=== PATIENT | female | born 1960 | race American Indian/Alaskan Native ===

== ENCOUNTER 2019-05-12 08:52 | Emergency (ER) | payer MEDICARE, OTHER ==
[2019-05-12 09:18] VITALS: BP 158/84
[2019-05-12] MEDS ORDERED: MORPHINE 4 MG/1 ML INJ IV ONE (10:12)
[2019-05-12] MEDS ORDERED: dexAMETHasone 20 MG/5 ML VIAL IV ONE (10:12)
[2019-05-12] MEDS ORDERED: ONDANSETRON 4 MG/2 ML INJ IV ONE (10:12)
[2019-05-12] MEDS ORDERED: SODIUM CHLORIDE 0.9% 1000 ML 1,000 ML IV ONE (10:15)
--- NOTE | 2019-05-12 10:15 | Emergency Department Report ---
ED ENT HPI - General Chief complaint: Dental/Oral Stated complaint: TOOTHACHE/GUM SWOLLEN Time Seen by Provider: 05/12/19 10:05 Source: patient Mode of arrival: Wheelchair Limitations: No Limitations - History of Present Illness Initial comments: Patient is 58 years old female with history of hypertension, CVA and asthma. Patient presented to the ER complaining of right to swelling extending down to the upper neck. Patient denied any difficulty in breathing or swallowing. MD complaint: tooth pain - Related Data Home Medications Medication Instructions Recorded Confirmed Last Taken Amlodipine Bes/Olmesartan Med 10 mg PO DAILY 06/03/14 06/03/14 06/03/14 [Travis 10-20 mg] Atenolol 100 mg PO DAILY 06/03/14 06/03/14 06/03/14 Clopidogrel [Plavix] 75 mg PO DAILY 06/03/14 06/03/14 06/03/14 Enalapril Maleate [Vasotec] 10 mg PO DAILY 06/03/14 06/03/14 06/03/14 Previous Rx's Medication Instructions Recorded Last Taken Type Pantoprazole [Protonix TAB] 40 mg PO QDAY #30 tablet 06/06/14 Unknown Rx oxyCODONE /ACETAMINOPHEN [Percocet 1 tab PO Q4H PRN #20 tablet 06/06/14 Unknown Rx 5/325 mg] Ondansetron [Zofran] 4 mg PO Q6HR PRN #4 tablet 07/12/14 Unknown Rx Oxycodone HCl/Acetaminophen 1 each PO Q6HR PRN #20 tablet 07/12/14 Unknown Rx [Percocet 10-325 mg] Sulfamethoxazole/Trimethoprim 1 each PO BID 7 Days #14 tablet 03/30/19 Unknown Rx [Bactrim DS TAB] cephALEXin [Keflex] 500 mg PO QID 7 Days #28 capsule 03/30/19 Unknown Rx oxyCODONE /ACETAMINOPHEN [Percocet 1 tab PO Q6HR PRN #10 tablet 03/30/19 Unknown Rx 5/325] Allergies Allergy/AdvReac Type Severity Reaction Status Date / Time aspirin Allergy Vomiting Verified 06/03/14 15:22 metoclopramide HCl Allergy Hives Verified 06/03/14 23:01 [From [facility]] ED Dental HPI - General Chief complaint: Dental/Oral Stated complaint: TOOTHACHE/GUM SWOLLEN Time Seen by Provider: 05/12/19 10:05 Source: patient Mode of arrival: Wheelchair Limitations: No Limitations - Related Data Home Medications Medication Instructions Recorded Confirmed Last Taken Amlodipine Bes/Olmesartan Med 10 mg PO DAILY 06/03/14 06/03/14 06/03/14 [Travis 10-20 mg] Atenolol 100 mg PO DAILY 06/03/14 06/03/14 06/03/14 Clopidogrel [Plavix] 75 mg PO DAILY 06/03/14 06/03/14 06/03/14 Enalapril Maleate [Vasotec] 10 mg PO DAILY 06/03/14 06/03/14 06/03/14 Previous Rx's Medication Instructions Recorded Last Taken Type Pantoprazole [Protonix TAB] 40 mg PO QDAY #30 tablet 06/06/14 Unknown Rx oxyCODONE /ACETAMINOPHEN [Percocet 1 tab PO Q4H PRN #20 tablet 06/06/14 Unknown Rx 5/325 mg] Ondansetron [Zofran] 4 mg PO Q6HR PRN #4 tablet 07/12/14 Unknown Rx Oxycodone HCl/Acetaminophen 1 each PO Q6HR PRN #20 tablet 07/12/14 Unknown Rx [Percocet 10-325 mg] Sulfamethoxazole/Trimethoprim 1 each PO BID 7 Days #14 tablet 03/30/19 Unknown Rx [Bactrim DS TAB] cephALEXin [Keflex] 500 mg PO QID 7 Days #28 capsule 03/30/19 Unknown Rx oxyCODONE /ACETAMINOPHEN [Percocet 1 tab PO Q6HR PRN #10 tablet 03/30/19 Unknown Rx 5/325] Allergies Allergy/AdvReac Type Severity Reaction Status Date / Time aspirin Allergy Vomiting Verified 06/03/14 15:22 metoclopramide HCl Allergy Hives Verified 06/03/14 23:01 [From [facility]] ED Review of Systems ROS: Stated complaint: TOOTHACHE/GUM SWOLLEN Other details as noted in HPI Comment: All other systems reviewed and negative Constitutional: chills, fever Respiratory: denies: cough Cardiovascular: denies: chest pain, palpitations Gastrointestinal: denies: abdominal pain, nausea, vomiting Neurological: denies: headache, weakness ED Past Medical Hx - Past Medical History Previous Medical History?: Yes Hx Hypertension: Yes (controlled with meds) Hx CVA: Yes Hx Psychiatric Treatment: Yes (depression, insomnia) Hx Asthma: Yes (uses inhalers. last used 4 days ago. no recent asthma attacks) Additional medical history: anemia (19-20 blood transfusions per patient). ulcer - Surgical History Past Surgical History?: Yes Additional Surgical History: hysterectomy. gastric bypass. bilateral knee surgery. bilateral shoulder surgery - Social History Smoking Status: Never Smoker Substance Use Type: None - Medications Home Medications: Home Medications Medication Instructions Recorded Confirmed Last Taken Type Amlodipine Bes/Olmesartan Med 10 mg PO DAILY 06/03/14 06/03/14 06/03/14 History [Travis 10-20 mg] Atenolol 100 mg PO DAILY 06/03/14 06/03/14 06/03/14 History Clopidogrel [Plavix] 75 mg PO DAILY 06/03/14 06/03/14 06/03/14 History Enalapril Maleate [Vasotec] 10 mg PO DAILY 06/03/14 06/03/14 06/03/14 History Pantoprazole [Protonix TAB] 40 mg PO QDAY #30 tablet 06/06/14 Unknown Rx oxyCODONE /ACETAMINOPHEN [Percocet 1 tab PO Q4H PRN #20 tablet 06/06/14 Unknown Rx 5/325 mg] Ondansetron [Zofran] 4 mg PO Q6HR PRN #4 tablet 07/12/14 Unknown Rx Oxycodone HCl/Acetaminophen 1 each PO Q6HR PRN #20 tablet 07/12/14 Unknown Rx [Percocet 10-325 mg] Sulfamethoxazole/Trimethoprim 1 each PO BID 7 Days #14 tablet 03/30/19 Unknown Rx [Bactrim DS TAB] cephALEXin [Keflex] 500 mg PO QID 7 Days #28 capsule 03/30/19 Unknown Rx oxyCODONE /ACETAMINOPHEN [Percocet 1 tab PO Q6HR PRN #10 tablet 03/30/19 Unknown Rx 5/325] ED Physical Exam - General Limitations: No Limitations General appearance: alert, in no apparent distress - Head Head exam: Present: atraumatic, normocephalic, normal inspection - Eye Eye exam: Present: normal appearance, PERRL - ENT ENT exam: Present: normal orophraynx, mucous membranes moist, other (dental abscess) - Respiratory Respiratory exam: Present: normal lung sounds bilaterally - Cardiovascular Cardiovascular Exam: Present: tachycardia - GI/Abdominal GI/Abdominal exam: Present: soft, normal bowel sounds. Absent: distended, tenderness, guarding, rebound, rigid, organomegaly, mass, bruit, pulsatile mass, hernia - Extremities Exam Extremities exam: Present: normal inspection, full ROM - Neurological Exam Neurological exam: Present: alert, oriented X3 - Psychiatric Psychiatric exam: Present: normal mood ED Course Vital Signs 05/12/19 05/12/19 05/12/19 09:15 10:40 10:49 Temperature 99.9 F H Pulse Rate 111 H Respiratory 16 17 16 Rate Blood Pressure 158/84 O2 Sat by Pulse 98 Oximetry ED Medical Decision Making - Lab Data Result diagrams: 05/12/19 10:40 05/12/19 10:40 - Radiology Data Radiology results: report reviewed - Medical Decision Making Patient is 58 years old female with history of hypertension, CVA and asthma. Patient presented to the ER complaining of right to swelling extending down to the upper neck. Patient denied any difficulty in breathing or swallowing. Patient labs reviewed and is unremarkable. CT neck with IV contrast showed a sm all periodontal abscess with reactive cellulitis. She received clindamycin, Decadron, morphine and Zofran. Patient stated that she is feeling much better. Patient strongly advised to follow-up with her dentist in the next 2-3 days and her primary care physician and advised to return to the ER if symptoms are not improved. Critical care attestation.: If time is entered above; I have spent that time in minutes in the direct care of this critically ill patient, excluding procedure time. ED Disposition Clinical Impression: Neck swelling, Periodontal abscess Disposition: - TO HOME OR SELFCARE Is pt being admited?: No Condition: Stable Instructions: Dental Abscess (ED), Cellulitis (ED) Referrals: ABHILASH SOFIA V [Other] - 3-5 Days
[2019-05-12 10:54] LABS: Basophils % (Auto) 0.2 % (0.0-1.8); Eosinophils # (Auto) 0.1 K/mm3 (0.0-0.4); Eosinophils % (Auto) 0.8 % (0.0-4.3); Hematocrit 35.7 % (30.3-42.9); Hemoglobin 11.7 gm/dl (10.1-14.3); Lymphocytes # (Auto) 0.9 K/mm3 (1.2-5.4); Mean Corpuscular HGB Conc 33 % (30-34); Mean Corpuscular Volume 92 fl (79-97); Monocytes # (Auto) 0.7 K/mm3 (0.0-0.8); Monocytes % (Auto) 6.6 % (0.0-7.3); Platelet Count 309 K/mm3 (140-440); Red Blood Count 3.86 M/mm3 (3.65-5.03)
[2019-05-12 11:15] LABS: BUN/Creatinine Ratio 11; Blood Urea Nitrogen 9 mg/dL (7-17); Calcium 9.6 mg/dL (8.4-10.2); Hemolysis Index 3
--- NOTE | 2019-05-12 14:32 | Cat Scan Report ---
CT neck w con INDICATION / CLINICAL INFORMATION: 58 years Female; neck swelling. TECHNIQUE: Contiguous thin cut axial images obtained through the neck following IV contrast. Sagittal and lawler l reconstructions performed by the technologist. All CT scans at this location are performed using CT dose reduction for ALARA by means of automated exposure control. COMPARISON: None available FINDINGS: There is a very small fluid collection with rim enhancement near the angle of the mandible on the right. I believe this finding is a small abscess related to periodontal disease from the wisdo m tooth on the right. Significant, surrounding cellulitic/inflammatory change noted. Presumed reactiv e lymph nodes identified. No suppurative nodes seen. Overall, poor dentition is noted as well. MUCOSAL SPACE: The nasopharynx, oropharynx and vallecula, oral cavity and floor of mouth, hypopharynx , and larynx are grossly normal. LYMPH NODES: No significant adenopathy appreciated. SALIVARY GLANDS: Parotid, submandibular, and visualized sublingual glands are within normal limits. T here is significant edema surrounding the right submandibular gland, which is presumably reactive. THYROID GLAND: Unremarkable. PARANASAL SINUSES: There is mild mucosal thickening in the ethmoids. SPINE: No significant abnormality of the cervical spine appreciated. VASCULAR STRUCTURES: Vascular structures are grossly normal in appearance. There is a small lipoma deep to the trapezius muscle on the right-of no clinical significance. Patchy airspace disease seen in the right lung apex. Some component of debris and/or fluid is seen layering in the mildly dilated esophagus. IMPRESSION: 1. Very small periapical/periodontal abscess suggested along the mandible on the right, with associat ed, reactive cellulitic process. 2. Minimal airspace disease suggested in the right lung apex, anteriorly. Follow-up with chest x-ray as clinically warranted. Signer Name: Morro Patel MD, III Signed: 05/12/2019 2:27 PM Workstation Name: [id number]
== END 2019-05-12 15:49 | disposition home or self-care (01) ==
LOC: ED 08:52
DX: R22.1 Localized swelling, mass and lump, neck (principal); K05.219 Aggressive periodontitis, localized, unspecified severity; I10 Essential (primary) hypertension; F32.9 Major depressive disorder, single episode, unspecified; J45.909 Unspecified asthma, uncomplicated; D64.9 Anemia, unspecified; Z86.73 Personal history of transient ischemic attack (TIA), and cerebral infarction without residual deficits; Z90.710 Acquired absence of both cervix and uterus; Z98.890 Other specified postprocedural states; Z88.6 Allergy status to analgesic agent; Z88.8 Allergy status to other drugs, medicaments and biological substances
CPT/HCPCS: 36415; 70491; 80048; 85025; 96365; 96375; 99284; J1100; J2270; J2405; J7030; Q9967

== ENCOUNTER 2019-05-20 22:38 | Emergency (ER) | payer OTHER ==
[2019-05-21] LABS: Basophils # (Auto) 0.1 K/mm3 (0.0-0.1); Basophils % (Auto) 0.9 % (0.0-1.8); Eosinophils # (Auto) 0.1 K/mm3 (0.0-0.4); Eosinophils % (Auto) 1.8 % (0.0-4.3); Hematocrit 29.4 % (30.3-42.9); Hemoglobin 9.5 gm/dl (10.1-14.3); Lymphocytes # (Auto) 1.5 K/mm3 (1.2-5.4); Lymphocytes % (Auto) 25.9 % (13.4-35.0); Mean Corpuscular HGB Conc 32 % (30-34); Mean Corpuscular Volume 92 fl (79-97); Monocytes # (Auto) 0.4 K/mm3 (0.0-0.8); Monocytes % (Auto) 6.9 % (0.0-7.3); Platelet Count 439 K/mm3 (140-440); Red Blood Count 3.19 M/mm3 (3.65-5.03); Red Cell Distribution Width 16.2 % (13.2-15.2)
[2019-05-21 00:03] LABS: BUN/Creatinine Ratio 17; Blood Urea Nitrogen 15 mg/dL (7-17); Calcium 9.1 mg/dL (8.4-10.2); Hemolysis Index 14
[2019-05-21] MEDS ORDERED: MORPHINE IV ONE (00:09)
[2019-05-21] MEDS ORDERED: ZOFRAN IV ONE (00:09)
--- NOTE | 2019-05-21 00:18 | Emergency Department Report ---
ED Chest Pain HPI - General Chief Complaint: Chest Pain Stated Complaint: CHEST PAIN Time Seen by Provider: 05/21/19 00:08 Source: patient, EMS Mode of arrival: Stretcher Limitations: No Limitations - History of Present Illness Initial Comments: 58 year old -Japanese female with a past medical history of hypertension, CVA, anemia, asthma. Patient has a surgical history of a gastric bypass 2001, hysterectomy, bilateral knee surgery and bilateral shoulder surgery. She comes in complaining of substernal chest pain after drinking chocolate milk with vomiting 1. Patient reports she clutched her chest and her son called her mother and then called EMS sent patient to the emergency room. Patient admits to chills sweating and vomiting times one with shortness of breath. Patient denies any nausea at this time. Patient reports that the location of her chest pain is epigastric area 10 out of 10 that is sharp shooting and intermittent. MD Complaint: chest pain -: This evening Onset: after eating Pain Location: substernal Pain Radiation: none Severity: severe Severity scale (0 -10): 10 Quality: sharp Consistency: intermittent Worsens With: nothing re: vomting (times 1) Treatments Prior to Arrival: none Aspirin use within the Past 7 Days: (0) No - Related Data Home Medications Medication Instructions Recorded Confirmed Last Taken Amlodipine Bes/Olmesartan Med 10 mg PO DAILY 06/03/14 06/03/14 06/03/14 [Travis 10-20 mg] Atenolol 100 mg PO DAILY 06/03/14 06/03/14 06/03/14 Clopidogrel [Plavix] 75 mg PO DAILY 06/03/14 06/03/14 06/03/14 Enalapril Maleate [Vasotec] 10 mg PO DAILY 06/03/14 06/03/14 06/03/14 Previous Rx's Medication Instructions Recorded Last Taken Type Pantoprazole [Protonix TAB] 40 mg PO QDAY #30 tablet 06/06/14 Unknown Rx oxyCODONE /ACETAMINOPHEN [Percocet 1 tab PO Q4H PRN #20 tablet 06/06/14 Unknown Rx 5/325 mg] Ondansetron [Zofran] 4 mg PO Q6HR PRN #4 tablet 07/12/14 Unknown Rx Oxycodone HCl/Acetaminophen 1 each PO Q6HR PRN #20 tablet 07/12/14 Unknown Rx [Percocet 10-325 mg] Sulfamethoxazole/Trimethoprim 1 each PO BID 7 Days #14 tablet 03/30/19 Unknown Rx [Bactrim DS TAB] cephALEXin [Keflex] 500 mg PO QID 7 Days #28 capsule 03/30/19 Unknown Rx oxyCODONE /ACETAMINOPHEN [Percocet 1 tab PO Q6HR PRN #10 tablet 03/30/19 Unknown Rx 5/325] Clindamycin [Clindamycin CAP] 300 mg PO Q8H #30 cap 05/12/19 Unknown Rx Ondansetron [Zofran Odt] 4 mg PO Q8HR PRN #14 tab.rapdis 05/12/19 Unknown Rx Prednisone [predniSONE 10 mg 10 mg PO .TAPER #1 tab.ds.pk 05/12/19 Unknown Rx (6-Day Pack, 21 Tabs)] traMADol [Ultram] 50 mg PO Q6HR PRN #14 tablet 05/12/19 Unknown Rx Allergies Allergy/AdvReac Type Severity Reaction Status Date / Time aspirin Allergy Vomiting Verified 06/03/14 15:22 metoclopramide HCl Allergy Hives Verified 06/03/14 23:01 [From [facility]] Heart Score - HEART Score History: Slightly suspicious EKG: Non-specific Age: 45-65 Risk factors: 1-2 risk factors Troponin: < normal limit HEART Score: 3 ED Review of Systems ROS: Stated complaint: CHEST PAIN Other details as noted in HPI Comment: All other systems reviewed and negative Cardiovascular: chest pain Gastrointestinal: vomiting (times 1). denies: nausea ED Past Medical Hx - Past Medical History Hx Hypertension: Yes (controlled with meds) Hx CVA: Yes Hx Psychiatric Treatment: Yes (depression, insomnia) Hx Asthma: Yes (uses inhalers. last used 4 days ago. no recent asthma attacks) Additional medical history: anemia (19-20 blood transfusions per patient). ulcer - Surgical History Past Surgical History?: Yes Additional Surgical History: hysterectomy. gastric bypass. bilateral knee surgery. bilateral shoulder surgery - Social History Smoking Status: Never Smoker Substance Use Type: None - Medications Home Medications: Home Medications Medication Instructions Recorded Confirmed Last Taken Type Amlodipine Bes/Olmesartan Med 10 mg PO DAILY 06/03/14 06/03/14 06/03/14 History [Travis 10-20 mg] Atenolol 100 mg PO DAILY 06/03/14 06/03/14 06/03/14 History Clopidogrel [Plavix] 75 mg PO DAILY 06/03/14 06/03/14 06/03/14 History Enalapril Maleate [Vasotec] 10 mg PO DAILY 06/03/14 06/03/14 06/03/14 History Pantoprazole [Protonix TAB] 40 mg PO QDAY #30 tablet 06/06/14 Unknown Rx oxyCODONE /ACETAMINOPHEN [Percocet 1 tab PO Q4H PRN #20 tablet 06/06/14 Unknown Rx 5/325 mg] Ondansetron [Zofran] 4 mg PO Q6HR PRN #4 tablet 07/12/14 Unknown Rx Oxycodone HCl/Acetaminophen 1 each PO Q6HR PRN #20 tablet 07/12/14 Unknown Rx [Percocet 10-325 mg] Sulfamethoxazole/Trimethoprim 1 each PO BID 7 Days #14 tablet 03/30/19 Unknown Rx [Bactrim DS TAB] cephALEXin [Keflex] 500 mg PO QID 7 Days #28 capsule 03/30/19 Unknown Rx oxyCODONE /ACETAMINOPHEN [Percocet 1 tab PO Q6HR PRN #10 tablet 03/30/19 Unknown Rx 5/325] Clindamycin [Clindamycin CAP] 300 mg PO Q8H #30 cap 05/12/19 Unknown Rx Ondansetron [Zofran Odt] 4 mg PO Q8HR PRN #14 tab.rapdis 05/12/19 Unknown Rx Prednisone [predniSONE 10 mg 10 mg PO .TAPER #1 tab.ds.pk 05/12/19 Unknown Rx (6-Day Pack, 21 Tabs)] traMADol [Ultram] 50 mg PO Q6HR PRN #14 tablet 05/12/19 Unknown Rx ED Physical Exam - General Limitations: No Limitations General appearance: alert, in no apparent distress - Head Head exam: Present: atraumatic, normocephalic - Eye Eye exam: Present: normal appearance - ENT ENT exam: Present: mucous membranes moist - Neck Neck exam: Present: normal inspection - Respiratory Respiratory exam: Present: normal lung sounds bilaterally. Absent: respiratory distress - Cardiovascular Cardiovascular Exam: Present: regular rate, normal rhythm. Absent: systolic murmur, diastolic murmur, rubs, gallop - GI/Abdominal GI/Abdominal exam: Present: soft, tenderness (epigastric), normal bowel sounds. Absent: distended - Back Exam Back exam: Present: normal inspection - Neurological Exam Neurological exam: Present: alert, oriented X3 - Psychiatric Psychiatric exam: Present: normal affect, normal mood - Skin Skin exam: Present: warm, dry, intact, normal color. Absent: rash ED Course Vital Signs 05/20/19 05/20/19 05/20/19 23:03 23:06 23:15 Temperature 97.6 F Pulse Rate 83 81 78 Respiratory 12 18 16 Rate Blood Pressure 157/75 141/83 O2 Sat by Pulse 100 100 Oximetry 05/20/19 05/20/19 05/21/19 23:30 23:45 00:00 Temperature Pulse Rate 80 Respiratory 15 Rate Blood Pressure 148/84 140/96 156/100 O2 Sat by Pulse 100 100 Oximetry 05/21/19 05/21/19 05/21/19 00:30 00:45 01:00 Temperature Pulse Rate Respiratory Rate Blood Pressure 166/96 152/95 134/86 O2 Sat by Pulse 90 100 96 Oximetry 05/21/19 05/21/19 05/21/19 01:15 01:30 01:45 Temperature Pulse Rate 71 67 Respiratory 14 14 Rate Blood Pressure 129/79 138/87 138/83 O2 Sat by Pulse 100 100 100 Oximetry 05/21/19 05/21/19 05/21/19 02:00 02:15 02:30 Temperature Pulse Rate 68 66 62 Respiratory 14 14 13 Rate Blood Pressure 132/82 148/88 157/91 O2 Sat by Pulse 100 100 100 Oximetry 05/21/19 05/21/19 05/21/19 02:45 03:00 03:15 Temperature Pulse Rate 63 65 63 Respiratory 15 14 14 Rate Blood Pressure 157/91 165/104 146/92 O2 Sat by Pulse 100 100 Oximetry 05/21/19 05/21/19 05/21/19 03:30 03:45 04:00 Temperature Pulse Rate 61 63 69 Respiratory 15 15 14 Rate Blood Pressure 136/88 130/85 118/67 O2 Sat by Pulse 100 100 100 Oximetry 05/21/19 05/21/19 05/21/19 04:15 04:30 04:45 Temperature Pulse Rate 66 65 65 Respiratory 14 14 15 Rate Blood Pressure 118/67 133/82 133/82 O2 Sat by Pulse 100 100 100 Oximetry 05/21/19 05:05 Temperature 97.6 F Pulse Rate 65 Respiratory 15 Rate Blood Pressure O2 Sat by Pulse 100 Oximetry NATHANAEL score - Nathanael Score Age > 65: (0) No Aspirin use within the Past 7 Days: (0) No 3 or more CAD Risk Factors: (0) No 2 or more Angina events in past 24 hrs: (0) No Known CAD with more than 50% Stenosis: (0) No Elevated Cardiac Markers: (0) No ST Deviation Greater than 0.5mm: (0) No NATHANAEL Score: 0 ED Medical Decision Making - Lab Data Result diagrams: 05/20/19 23:16 05/20/19 23:16 - Medical Decision Making 58 year old -Japanese female with a past medical history of hypertension, CVA, anemia, asthma. Patient has a surgical history of a gastric bypass 2001, hysterectomy, bilateral knee surgery and bilateral shoulder surgery. She comes in complaining of substernal chest pain after drinking chocolate milk with vomiting 1. Patient reports she clutched her chest and her son called her mother and then called EMS sent patient to the emergency room. Patient admits to chills sweating and vomiting times one with shortness of breath. Patient denies any nausea at this time. Patient reports that the location of her chest pain is epigastric area 10 out of 10 that is sharp shooting and intermittent. Family history of HTN. EKG with in normal limits, Neg troponin. CXR with no acute findings. Review of [place] [employer] aware patient has filled T3 on 05/13/19 and [place] 7.5mg 120 tablets on 05/05/19 Dr. Abhilash Cornejo. Critical care attestation.: If time is entered above; I have spent that time in minutes in the direct care of this critically ill patient, excluding procedure time. ED Disposition Clinical Impression: Atypical chest pain Disposition: DC-01 TO HOME OR SELFCARE Is pt being admited?: No Does the pt Need Aspirin: No Condition: Stable Instructions: Chest Pain (ED) Additional Instructions: Follow-up which her primary care provider next 2-3 days. Referrals: PRIMARY CARE, [Primary Care Provider] - 3-5 Days ABHILASH SOFIA JR, MD [Staff Physician] - 3-5 Days Forms: Work/School Release Form(ED)
--- NOTE | 2019-05-21 00:36 | XRay Report ---
CHEST 1 VIEW INDICATION / CLINICAL INFORMATION: Chest Pain. COMPARISON: None available. FINDINGS: SUPPORT DEVICES: None. HEART / MEDIASTINUM: No significant abnormality. LUNGS / PLEURA: No significant pulmonary or pleural abnormality. No pneumothorax. ADDITIONAL FINDINGS: No significant additional findings. IMPRESSION: 1. No acute findings. Signer Name: Will Barrera MD Signed: 05/21/2019 12:31 AM Workstation Name: [id number]
[2019-05-21 00:53] LABS: Alanine Aminotransferase 22 units/L (7-56)
[2019-05-21 00:54] LABS: Bilirubin,Direct < 0.2 mg/dL (0-0.2)
[2019-05-21 04:59] VITALS: BP 133/82
== END 2019-05-21 05:05 | disposition home or self-care (01) ==
LOC: ED 22:38
DX: R07.89 Other chest pain (principal); I10 Essential (primary) hypertension; F32.9 Major depressive disorder, single episode, unspecified; G47.00 Insomnia, unspecified; D64.9 Anemia, unspecified; Z86.73 Personal history of transient ischemic attack (TIA), and cerebral infarction without residual deficits; Z90.710 Acquired absence of both cervix and uterus; Z98.890 Other specified postprocedural states; Z88.6 Allergy status to analgesic agent; Z88.8 Allergy status to other drugs, medicaments and biological substances
CPT/HCPCS: 36415; 71045; 80048; 80076; 83690; 84484; 85025; 93005; 93010; 96374; 96375; 99285; J2270; J2405

== ENCOUNTER 2019-06-06 15:20 | Observation (INO) | payer MEDICARE ==
--- NOTE | 2019-06-06 15:41 | Event Note ---
ED Screening Note Date of service: 06/06/19 Time: 15:37 ED Screening Note: This is a 58 y.o. F. that presents to the ER with chest pain radiating to left arm x 3-4 days. Patient states she was discharged 2 days ago and seen by [facility] and told she would have a stress test on Sunday. Patient states she received a call telling her to go straight to [facility] for admission. This initial assessment/diagnostic orders/clinical plan/treatment(s) is/are subject to change based on patients health status, clinical progression and re- assessment by fellow clinical providers in the ED. Further treatment and workup at subsequent clinical providers discretion. Patient/guardian urged not to elope from the ED as their condition may be serious if not clinically assessed and managed. Initial orders include: Labs, EKG, & CXR
[2019-06-06 16:13] LABS: Basophils % (Auto) 0.6 % (0.0-1.8); Eosinophils # (Auto) 0.1 K/mm3 (0.0-0.4); Eosinophils % (Auto) 1.5 % (0.0-4.3); Hematocrit 29.5 % (30.3-42.9); Hemoglobin 9.4 gm/dl (10.1-14.3); Lymphocytes # (Auto) 1.7 K/mm3 (1.2-5.4); Mean Corpuscular HGB Conc 32 % (30-34); Mean Corpuscular Volume 94 fl (79-97); Monocytes # (Auto) 0.3 K/mm3 (0.0-0.8); Monocytes % (Auto) 7.8 % (0.0-7.3); Platelet Count 246 K/mm3 (140-440); Red Blood Count 3.14 M/mm3 (3.65-5.03); Red Cell Distribution Width 16.5 % (13.2-15.2)
--- NOTE | 2019-06-06 16:23 | XRay Report ---
CHEST 1 VIEW 4:03 PM INDICATION / CLINICAL INFORMATION: Chest pain. COMPARISON: 05/20/2019. FINDINGS: SUPPORT DEVICES: None. HEART / MEDIASTINUM: The heart size and pulmonary vasculature are normal. The aorta is normal in melva leyla. LUNGS / PLEURA: Minimal pleuroparenchymal scarring in the left lateral lung base is stable. The lungs are otherwise clear. No pneumothorax. ADDITIONAL FINDINGS: No significant additional findings. IMPRESSION: No acute abnormality or significant change. Signer Name: Sadi Lao MD Signed: 06/06/2019 4:19 PM Workstation Name: [id number]
[2019-06-06 16:37] LABS: BUN/Creatinine Ratio 17; Blood Urea Nitrogen 12 mg/dL (7-17); Calcium 8.6 mg/dL (8.4-10.2); Hemolysis Index 8
--- NOTE | 2019-06-06 17:24 | Emergency Department Report ---
ED Chest Pain HPI - General Chief Complaint: Chest Pain Stated Complaint: DOC ORDERED/HEART PROBLEMS Time Seen by Provider: 06/06/19 15:37 Source: patient Mode of arrival: Ambulatory Limitations: No Limitations - History of Present Illness Initial Comments: 8-year-old female who was seen at the end of April for atypical chest pain. She was sent here today for evaluation and recommended admission by Dr. Torres from his office. She tells me she has been having tightness in her left chest radiating to her left arm for the last 4 days. She does admit to multiple pain complaints. I believe she is taking chronic opioids. [facility]. She thinks her grandmother may have had a heart attack and her mother has a pacemaker. She tells me that she had DVT in her arm and calf. She has previously been on Coumadin. She does not complain of any berto shortness of breath although she describes some slight dyspnea. She denies nausea vomiting dizziness and sweating leg pain or swelling. She has chronic joint pain of her upper or lower extremities she states. MD Complaint: chest pain -: Gradual, days(s) (4 days) Onset: during rest Pain Location: left chest Pain Radiation: LUE Severity: moderate Quality: tightness Consistency: constant Improves With: nothing Worsens With: nothing re: dyspnea (vaguely). denies: nausea, vomting, diaphoresis Other Symptoms: denies: cough, fever, syncope Treatments Prior to Arrival: none Aspirin use within the Past 7 Days: (0) No - Related Data Home Medications Medication Instructions Recorded Confirmed Last Taken Amlodipine Bes/Olmesartan Med 10 mg PO DAILY 06/03/14 06/03/14 06/03/14 [Travis 10-20 mg] Atenolol 100 mg PO DAILY 06/03/14 06/03/14 06/03/14 Clopidogrel [Plavix] 75 mg PO DAILY 06/03/14 06/03/14 06/03/14 Enalapril Maleate [Vasotec] 10 mg PO DAILY 06/03/14 06/03/14 06/03/14 Previous Rx's Medication Instructions Recorded Last Taken Type Pantoprazole [Protonix TAB] 40 mg PO QDAY #30 tablet 06/06/14 Unknown Rx oxyCODONE /ACETAMINOPHEN [Percocet 1 tab PO Q4H PRN #20 tablet 06/06/14 Unknown Rx 5/325 mg] Ondansetron [Zofran] 4 mg PO Q6HR PRN #4 tablet 07/12/14 Unknown Rx Oxycodone HCl/Acetaminophen 1 each PO Q6HR PRN #20 tablet 07/12/14 Unknown Rx [Percocet 10-325 mg] Sulfamethoxazole/Trimethoprim 1 each PO BID 7 Days #14 tablet 03/30/19 Unknown Rx [Bactrim DS TAB] cephALEXin [Keflex] 500 mg PO QID 7 Days #28 capsule 03/30/19 Unknown Rx oxyCODONE /ACETAMINOPHEN [Percocet 1 tab PO Q6HR PRN #10 tablet 03/30/19 Unknown Rx 5/325] Clindamycin [Clindamycin CAP] 300 mg PO Q8H #30 cap 05/12/19 Unknown Rx Ondansetron [Zofran Odt] 4 mg PO Q8HR PRN #14 tab.rapdis 05/12/19 Unknown Rx Prednisone [predniSONE 10 mg 10 mg PO .TAPER #1 tab.ds.pk 05/12/19 Unknown Rx (6-Day Pack, 21 Tabs)] traMADol [Ultram] 50 mg PO Q6HR PRN #14 tablet 05/12/19 Unknown Rx Allergies Allergy/AdvReac Type Severity Reaction Status Date / Time aspirin Allergy Vomiting Verified 06/03/14 15:22 metoclopramide HCl Allergy Hives Verified 06/03/14 23:01 [From [facility]] Heart Score - HEART Score History: Moderately suspicious EKG: Normal Age: 45-65 Risk factors: 1-2 risk factors Troponin: < normal limit HEART Score: 3 - Critical Actions Critical Actions: 0-3 pts:0.9-1.7%risk of adverse cardiac event.Candidate for discharge ED Review of Systems ROS: Stated complaint: DOC ORDERED/HEART PROBLEMS Other details as noted in HPI Constitutional: denies: chills, fever Eyes: denies: eye pain, eye discharge, vision change ENT: denies: ear pain, throat pain Respiratory: denies: cough, wheezing Cardiovascular: chest pain. denies: palpitations Endocrine: no symptoms reported Gastrointestinal: denies: abdominal pain, nausea, diarrhea Genitourinary: denies: urgency, dysuria, discharge Musculoskeletal: denies: back pain, joint swelling, arthralgia Skin: denies: rash, lesions Neurological: denies: headache, weakness, paresthesias Psychiatric: denies: anxiety, depression Hematological/Lymphatic: denies: easy bleeding, easy bruising ED Past Medical Hx - Past Medical History Hx Hypertension: Yes (controlled with meds) Hx CVA: Yes Hx Psychiatric Treatment: Yes (depression, insomnia) Hx Asthma: Yes (uses inhalers. last used 4 days ago. no recent asthma attacks) Additional medical history: anemia (19-20 blood transfusions per patient). ulcer - Surgical History Additional Surgical History: hysterectomy. gastric bypass. bilateral knee surgery. bilateral shoulder surgery - Social History Smoking Status: Never Smoker Substance Use Type: None - Medications Home Medications: Home Medications Medication Instructions Recorded Confirmed Last Taken Type Amlodipine Bes/Olmesartan Med 10 mg PO DAILY 06/03/14 06/03/14 06/03/14 History [Travis 10-20 mg] Atenolol 100 mg PO DAILY 06/03/14 06/03/14 06/03/14 History Clopidogrel [Plavix] 75 mg PO DAILY 06/03/14 06/03/14 06/03/14 History Enalapril Maleate [Vasotec] 10 mg PO DAILY 06/03/14 06/03/14 06/03/14 History Pantoprazole [Protonix TAB] 40 mg PO QDAY #30 tablet 06/06/14 Unknown Rx oxyCODONE /ACETAMINOPHEN [Percocet 1 tab PO Q4H PRN #20 tablet 06/06/14 Unknown Rx 5/325 mg] Ondansetron [Zofran] 4 mg PO Q6HR PRN #4 tablet 07/12/14 Unknown Rx Oxycodone HCl/Acetaminophen 1 each PO Q6HR PRN #20 tablet 07/12/14 Unknown Rx [Percocet 10-325 mg] Sulfamethoxazole/Trimethoprim 1 each PO BID 7 Days #14 tablet 03/30/19 Unknown Rx [Bactrim DS TAB] cephALEXin [Keflex] 500 mg PO QID 7 Days #28 capsule 03/30/19 Unknown Rx oxyCODONE /ACETAMINOPHEN [Percocet 1 tab PO Q6HR PRN #10 tablet 03/30/19 Unknown Rx 5/325] Clindamycin [Clindamycin CAP] 300 mg PO Q8H #30 cap 05/12/19 Unknown Rx Ondansetron [Zofran Odt] 4 mg PO Q8HR PRN #14 tab.rapdis 05/12/19 Unknown Rx Prednisone [predniSONE 10 mg 10 mg PO .TAPER #1 tab.ds.pk 05/12/19 Unknown Rx (6-Day Pack, 21 Tabs)] traMADol [Ultram] 50 mg PO Q6HR PRN #14 tablet 05/12/19 Unknown Rx ED Physical Exam - General Limitations: No Limitations General appearance: alert, in no apparent distress - Head Head exam: Present: atraumatic, normocephalic - Eye Eye exam: Present: normal appearance. Absent: scleral icterus - ENT ENT exam: Present: mucous membranes moist - Neck Neck exam: Present: normal inspection - Respiratory Respiratory exam: Present: normal lung sounds bilaterally. Absent: respiratory distress - Cardiovascular Cardiovascular Exam: Present: regular rate, normal rhythm. Absent: systolic murmur, diastolic murmur, rubs, gallop - GI/Abdominal GI/Abdominal exam: Present: soft, normal bowel sounds. Absent: distended, tenderness, guarding, rebound, rigid - Extremities Exam Extremities exam: Present: normal inspection, normal capillary refill. Absent: pedal edema, joint swelling, calf tenderness - Back Exam Back exam: Present: normal inspection - Neurological Exam Neurological exam: Present: alert, oriented X3, CN II-XII intact. Absent: motor sensory deficit - Psychiatric Psychiatric exam: Present: normal affect, normal mood - Skin Skin exam: Present: warm, dry, intact, normal color. Absent: rash ED Course Vital Signs 06/06/19 15:26 Temperature 97.3 F L Pulse Rate 83 Respiratory 18 Rate Blood Pressure 160/77 O2 Sat by Pulse 100 Oximetry GOGO score - Gogo Score Age > 65: (0) No Aspirin use within the Past 7 Days: (0) No 3 or more CAD Risk Factors: (0) No 2 or more Angina events in past 24 hrs: (0) No Known CAD with more than 50% Stenosis: (0) No Elevated Cardiac Markers: (0) No ST Deviation Greater than 0.5mm: (0) No GOGO Score: 0 ED Medical Decision Making - Lab Data Result diagrams: 06/06/19 15:44 06/06/19 15:44 Laboratory Results - last 24 hr 06/06/19 06/06/19 15:44 15:44 WBC 3.7 L RBC 3.14 L Hgb 9.4 L Hct 29.5 L MCV 94 MCH 30 MCHC 32 RDW 16.5 H Plt Count 246 Lymph % (Auto) 45.0 H [place] % (Auto) 7.8 H Eos % (Auto) 1.5 Baso % (Auto) 0.6 Lymph # 1.7 [place] # 0.3 Eos # 0.1 Baso # 0.0 Seg Neutrophils % 45.1 Seg Neutrophils # 1.7 L Sodium 143 Potassium 4.0 Chloride 112.7 H Carbon Dioxide 17 L Anion Gap 17 BUN 12 Creatinine 0.7 Estimated GFR > 60 BUN/Creatinine Ratio 17 Glucose 114 H Calcium 8.6 Troponin T < 0.010 - EKG Data -: EKG Interpreted by Dc EKG shows normal: sinus rhythm, axis, intervals, QRS complexes, ST-T waves Rate: normal - EKG Data Interpretation: no acute changes - Radiology Data Radiology results: image reviewed (no acute process) Critical care attestation.: If time is entered above; I have spent that time in minutes in the direct care of this critically ill patient, excluding procedure time. ED Disposition Clinical Impression: Chest pain Qualifiers: Chest pain type: unspecified Qualified Code(s): R07.9 - Chest pain, unspecified Anemia Qualifiers: Anemia type: unspecified type Qualified Code(s): D64.9 - Anemia, unspecified Disposition: 09 OP ADMIT IP TO THIS HOSP Is pt being admited?: Yes Does the pt Need Aspirin: Yes Condition: Stable Instructions: Chest Pain (ED) Time of Disposition: 17:27
[2019-06-06] MEDS ORDERED: ASPIRIN 81 MG TAB CHEW PO ONE (17:27)
[2019-06-06] MEDS ORDERED: NITROGLYCERIN 2% OINT 1 GM TP ONE (17:28)
[2019-06-06] MEDS ORDERED: HYDROcodone/ACETAMINOPHEN 5-325 MG TAB PO ONE (17:28)
[2019-06-06 17:32] LABS: INR 0.94 (0.87-1.13); Partial Thromboplastin Time 27.8 Sec. (24.2-36.6)
[2019-06-06 17:41] LABS: Alanine Aminotransferase 39 units/L (7-56); Albumin 3.8 g/dL (3.9-5)
[2019-06-06 17:50] LABS: Bilirubin,Direct < 0.2 mg/dL (0-0.2)
[2019-06-06 18:55] LABS: Bilirubin,Urine NEG (Negative); Blood,Urine NEG (Negative); Color,Urine Yellow (Yellow); Mucus,Urine FEW /HPF; Protein,Urine <15 mg/dL mg/dL (Negative); Urobilinogen,Urine < 2.0 mg/dL (<2.0)
[2019-06-06 19:03] LABS: Amphetamine Screen,Urine PRESUMPTIVE NEGATIVE; Cannabinoid Screen,Urine PRESUMPTIVE NEGATIVE; Cocaine Screen,Urine PRESUMPTIVE NEGATIVE; Methadone Screen,Urine PRESUMPTIVE NEGATIVE; Opiate Screen,Urine PRESUMPTIVE NEGATIVE
[2019-06-06 19:15] LABS: Benzodiazepines Screen,Urine PRESUMPTIVE POSITIVE
[2019-06-06] MEDS ORDERED: HYDROmorphone 1 MG/1 ML INJ IV ONE (21:05)
[2019-06-06] MEDS ORDERED: HYDROmorphone 1 MG/1 ML INJ ONE (21:19)
[2019-06-06] MEDS ORDERED: HYDROmorphone 1 MG/1 ML INJ IV PRN (21:55)
[2019-06-06] MEDS ORDERED: oxyCODONE /ACETAMINOPHEN 5-325MG TAB PO PRN (21:55)
[2019-06-06] MEDS ORDERED: ACETAMINOPHEN 325 MG TAB PO PRN (21:55)
[2019-06-06] MEDS ORDERED: ONDANSETRON 4 MG/2 ML INJ IV PRN (21:55)
[2019-06-06] MEDS ORDERED: NON-FORMULARY EACH (Diazepam [Diazepam] 10 MG) PO SCH (22:00)
[2019-06-06] MEDS ORDERED: AMLODIPINE BES PO SCH (22:00)
[2019-06-06] MEDS ORDERED: OLMESARTAN MED PO SCH (22:00)
[2019-06-06] MEDS ORDERED: traZODone 50 MG TAB PO SCH (22:00)
[2019-06-06] MEDS ORDERED: FAMOTIDINE 20 MG TAB PO SCH (22:00)
[2019-06-06] MEDS ORDERED: AMITRIPTYLINE 25 MG TAB PO SCH (22:00)
[2019-06-06] MEDS ORDERED: ENALAPRIL MALEATE 10 MG PO SCH (22:00)
[2019-06-06] MEDS ORDERED: ENOXAPARIN 40 MG/0.4 ML INJ SUB-Q SCH (22:00)
[2019-06-06] MEDS ORDERED: ATENOLOL 100 MG PO SCH (22:00)
[2019-06-06] MEDS ORDERED: NON-FORMULARY EACH (Famotidine [Pepcid] 40 MG) PO SCH (22:00)
[2019-06-06] MEDS: diazePAM 5 MG TAB PO SCH (23:01)
[2019-06-06] MEDS: atenoloL 50 MG TAB PO SCH (23:02)
[2019-06-06] MEDS: CARISOPRODOL 350 MG TAB PO SCH (23:03)
[2019-06-06] MEDS: GABAPENTIN 300 MG CAP PO SCH (23:04)
[2019-06-06] MEDS: METHYLDOPA 250 MG TAB PO SCH (23:04)
[2019-06-06] MEDS: LOSARTAN 50 MG TAB PO SCH (23:05)
[2019-06-06] MEDS: amLODIPine 10 MG TAB PO SCH (23:05)
[2019-06-06] MEDS: LISINOPRIL 10 MG TAB PO SCH (23:07)
[2019-06-07] MEDS: GABAPENTIN 300 MG CAP PO SCH ×2 (05:43→15:20)
--- NOTE | 2019-06-07 06:59 | History and Physical Report ---
History of Present Illness Date of examination: 06/06/19 Date of admission: 06/06/19 17:28 Chief complaint: CP for one day History of present illness: 58-year-old female who was seen at the end of April for atypical chest pain sent here today for evaluation and recommended admission by Dr. Torres from his office. Chest pain since yesterday.Intermittent in nature.No diaphoresis.No SOB.No exacerbating or relieving factors. Past Medical History Hypertension: Yes (controlled with meds) CVA: Yes Psychiatric Treatment: Yes (depression, insomnia) Asthma: Yes (uses inhalers. last used 4 days ago. no recent asthma attacks) Additional medical history: anemia (19-20 blood transfusions per patient). ulcer Surgical History Additional Surgical History: hysterectomy. gastric bypass. bilateral knee surgery. bilateral shoulder surgery Social History Smoking Status: Never Smoker Substance Use Type: None Family History Htn - Medications Home Medications: Home Medications Medication Instructions Recorded Confirmed Last Taken Type Amlodipine Bes/Olmesartan Med 10 mg PO DAILY 06/03/14 06/03/14 06/03/14 History [Travis 10-20 mg] Atenolol 100 mg PO DAILY 06/03/14 06/03/14 06/03/14 History Clopidogrel [Plavix] 75 mg PO DAILY 06/03/14 06/03/14 06/03/14 History Enalapril Maleate [Vasotec] 10 mg PO DAILY 06/03/14 06/03/14 06/03/14 History Pantoprazole [Protonix TAB] 40 mg PO QDAY #30 tablet 06/06/14 Unknown Rx oxyCODONE /ACETAMINOPHEN [Percocet 1 tab PO Q4H PRN #20 tablet 06/06/14 Unknown Rx 5/325 mg] Ondansetron [Zofran] 4 mg PO Q6HR PRN #4 tablet 07/12/14 Unknown Rx Oxycodone HCl/Acetaminophen 1 each PO Q6HR PRN #20 tablet 07/12/14 Unknown Rx [Percocet 10-325 mg] Sulfamethoxazole/Trimethoprim 1 each PO BID 7 Days #14 tablet 03/30/19 Unknown Rx [Bactrim DS TAB] cephALEXin [Keflex] 500 mg PO QID 7 Days #28 capsule 03/30/19 Unknown Rx oxyCODONE /ACETAMINOPHEN [Percocet 1 tab PO Q6HR PRN #10 tablet 03/30/19 Unknown Rx 5/325] Clindamycin [Clindamycin CAP] 300 mg PO Q8H #30 cap 05/12/19 Unknown Rx Ondansetron [Zofran Odt] 4 mg PO Q8HR PRN #14 tab.rapdis 05/12/19 Unknown Rx Prednisone [predniSONE 10 mg 10 mg PO .TAPER #1 tab.ds.pk 05/12/19 Unknown Rx (6-Day Pack, 21 Tabs)] traMADol [Ultram] 50 mg PO Q6HR PRN #14 tablet 05/12/19 Unknown Rx Medications and Allergies Allergies Allergy/AdvReac Type Severity Reaction Status Date / Time aspirin Allergy Vomiting Verified 06/03/14 15:22 metoclopramide HCl Allergy Hives Verified 06/03/14 23:01 [From [facility]] Home Medications Medication Instructions Recorded Confirmed Last Taken Type Amlodipine Bes/Olmesartan Med 10 mg PO DAILY 06/03/14 06/06/19 06/03/14 History [Travis 10-20 mg] Atenolol 100 mg PO DAILY 06/03/14 06/06/19 06/03/14 History Enalapril Maleate [Vasotec] 10 mg PO DAILY 06/03/14 06/07/19 06/03/14 History Amitriptyline [Elavil] 25 mg PO QHS 06/06/19 06/07/19 06/06/19 History Carisoprodol [Soma] 350 mg PO BID 06/06/19 06/07/19 06/06/19 History Clopidogrel [Plavix] 75 mg PO QDAY 06/06/19 06/06/19 Unknown History Famotidine [Pepcid] 40 mg PO QHS 06/06/19 06/06/19 Unknown History Gabapentin 300 mg PO 4XD 06/06/19 06/06/19 Unknown History Methyldopa [Aldomet] 250 mg PO QDAY 06/06/19 06/07/19 06/06/19 History Zolpidem [Ambien] 10 mg PO QHS 06/06/19 06/06/19 Unknown History diazePAM [Diazepam] 10 mg PO 4XD 06/06/19 06/06/19 Unknown History hydroCHLOROthiazide [HCTZ] 25 mg PO QDAY 06/06/19 06/06/19 Unknown History traZODone [Desyrel] 50 mg PO QHS 06/06/19 06/06/19 Unknown History Active Meds: Active Medications Acetaminophen (Tylenol) 650 mg PO Q4H PRN PRN Reason: Pain MILD(1-3)/Fever >100.5/THURMAN Last Admin: 06/07/19 04:56 Dose: 650 mg Documented by: Amitriptyline HCl (Elavil) 25 mg PO QHS [facility] Last Admin: 06/06/19 23:04 Dose: 25 mg Documented by: Amlodipine Besylate (Amlodipine) 10 mg PO DAILY [facility] Last Admin: 06/06/19 23:05 Dose: Not Given Documented by: Atenolol (Tenormin) 100 mg PO QDAY [facility] Last Admin: 06/06/19 23:02 Dose: 100 mg Documented by: Carisoprodol (Soma) 350 mg PO BID [facility] Last Admin: 06/06/19 23:03 Dose: 350 mg Documented by: Clopidogrel Bisulfate (Plavix) 75 mg PO QDAY [facility] Diazepam (Valium) 10 mg PO Q12HR [facility] Last Admin: 06/06/19 23:01 Dose: 10 mg Documented by: Enoxaparin Sodium (Enoxaparin) 40 mg SUB-Q QDAY@2200 [facility] Last Admin: 06/06/19 23:04 Dose: 40 mg Documented by: Famotidine (Pepcid) 40 mg PO QHS [facility] Last Admin: 06/06/19 23:03 Dose: 40 mg Documented by: Gabapentin (Gabapentin) 300 mg PO Q8H [facility] Last Admin: 06/07/19 05:43 Dose: Not Given Documented by: Hydrochlorothiazide (Hctz) 25 mg PO QDAY [facility] Hydromorphone HCl (Dilaudid) 0.5 mg IV Q3H PRN PRN Reason: Pain , Severe (7-10) Lisinopril (Zestril) 10 mg PO QDAY [facility] Last Admin: 06/06/19 23:07 Dose: Not Given Documented by: Losartan Potassium (Cozaar) 50 mg PO QDAY [facility] Last Admin: 06/06/19 23:05 Dose: Not Given Documented by: Methyldopa (Aldomet) 250 mg PO QDAY [facility] Last Admin: 06/06/19 23:04 Dose: Not Given Documented by: Ondansetron HCl (Zofran) 4 mg IV Q8H PRN PRN Reason: Nausea And Vomiting Oxycodone/Acetaminophen (Percocet 5/325) 1 tab PO Q6H PRN PRN Reason: Pain, Moderate (4-6) Sodium Chloride (Sodium Chloride Flush Syringe 10 Ml) 10 ml IV BID [facility] Last Admin: 06/06/19 23:06 Dose: 10 ml Documented by: Sodium Chloride (Sodium Chloride Flush Syringe 10 Ml) 10 ml IV PRN PRN PRN Reason: LINE FLUSH Trazodone HCl (Desyrel) 50 mg PO QHS [facility] Last Admin: 06/06/19 23:04 Dose: 50 mg Documented by: Review of Systems All systems: negative Cardiovascular: chest pain Respiratory: no dyspnea on exertion Gastrointestinal: no abdominal pain, no nausea, no vomiting, no diarrhea, no constipation, no coffee ground emesis Menstruation: ammenorrhea Neurological: no seizures, no syncope Hematologic/Lymphatic: no easy bruising, no easy bleeding Allergic/Immunologic: no urticaria, no allergic rhinitis, no wheezing Exam - Constitutional Vitals: Temp Pulse Resp BP Pulse Ox 98.1 F 55 L 18 90/53 100 06/07/19 04:50 06/07/19 04:50 06/07/19 04:50 06/07/19 04:50 06/07/19 04:50 General appearance: Present: no acute distress, well-nourished - EENT Eyes: Present: PERRL ENT: hearing intact, clear oral mucosa - Neck Neck: Present: supple, normal ROM - Respiratory Respiratory effort: normal Respiratory: bilateral: CTA - Cardiovascular Heart rate: 78 Rhythm: regular Heart Sounds: Present: S1 & S2. Absent: rub, click - Extremities Extremities: no ischemia, pulses intact, pulses symmetrical, No edema Peripheral Pulses: within normal limits - Abdominal General gastrointestinal: Present: soft, non-tender, non-distended, normal bowel sounds Female genitourinary: Present: normal - Rectal Rectal Exam: deferred - Integumentary Integumentary: Present: clear, warm, dry - Musculoskeletal Musculoskeletal: gait normal, strength equal bilaterally - Psychiatric Psychiatric: appropriate mood/affect, intact judgment & insight - Neurologic Neurologic: CNII-XII intact, moves all extremities - Allied Health Allied health notes reviewed: nursing, case management Results - Labs CBC & Chem 7: 06/06/19 15:44 06/06/19 15:44 Labs: Laboratory Last Values WBC 3.7 K/mm3 (4.5-11.0) L 06/06/19 15:44 RBC 3.14 M/mm3 (3.65-5.03) L 06/06/19 15:44 Hgb 9.4 gm/dl (10.1-14.3) L 06/06/19 15:44 Hct 29.5 % (30.3-42.9) L 06/06/19 15:44 MCV 94 fl (79-97) 06/06/19 15:44 MCH 30 pg (28-32) 06/06/19 15:44 MCHC 32 % (30-34) 06/06/19 15:44 RDW 16.5 % (13.2-15.2) H 06/06/19 15:44 Plt Count 246 K/mm3 (140-440) 06/06/19 15:44 Lymph % (Auto) 45.0 % (13.4-35.0) H 06/06/19 15:44 [place] % (Auto) 7.8 % (0.0-7.3) H 06/06/19 15:44 Eos % (Auto) 1.5 % (0.0-4.3) 06/06/19 15:44 Baso % (Auto) 0.6 % (0.0-1.8) 06/06/19 15:44 Lymph # 1.7 K/mm3 (1.2-5.4) 06/06/19 15:44 [place] # 0.3 K/mm3 (0.0-0.8) 06/06/19 15:44 Eos # 0.1 K/mm3 (0.0-0.4) 06/06/19 15:44 Baso # 0.0 K/mm3 (0.0-0.1) 06/06/19 15:44 Seg Neutrophils % 45.1 % (40.0-70.0) 06/06/19 15:44 Seg Neutrophils # 1.7 K/mm3 (1.8-7.7) L 06/06/19 15:44 PT 12.5 Sec. (12.2-14.9) 06/06/19 17:06 INR 0.94 (0.87-1.13) 06/06/19 17:06 APTT 27.8 Sec. (24.2-36.6) 06/06/19 17:06 D-Dimer 192.24 ng/mlDDU (0-234) 06/06/19 17:06 Sodium 143 mmol/L (137-145) 06/06/19 15:44 Potassium 4.0 mmol/L (3.6-5.0) 06/06/19 15:44 Chloride 112.7 mmol/L (98-107) H 06/06/19 15:44 Carbon Dioxide 17 mmol/L (22-30) L 06/06/19 15:44 Anion Gap 17 mmol/L 06/06/19 15:44 BUN 12 mg/dL (7-17) 06/06/19 15:44 Creatinine 0.7 mg/dL (0.7-1.2) 06/06/19 15:44 Estimated GFR > 60 ml/min 06/06/19 15:44 BUN/Creatinine Ratio 17 % 06/06/19 15:44 Glucose 114 mg/dL (65-100) H 06/06/19 15:44 Hemoglobin A1c 5.2 % (4-6) 06/06/19 15:44 Calcium 8.6 mg/dL (8.4-10.2) 06/06/19 15:44 Magnesium 1.80 mg/dL (1.7-2.3) 06/06/19 17:06 Total Bilirubin < 0.20 mg/dL (0.1-1.2) 06/06/19 17:06 Direct Bilirubin < 0.2 mg/dL (0-0.2) 06/06/19 17:06 Indirect Bilirubin 0.0 mg/dL 06/06/19 17:06 AST 32 units/L (5-40) 06/06/19 17:06 ALT 39 units/L (7-56) 06/06/19 17:06 Alkaline Phosphatase 104 units/L (35-129) 06/06/19 17:06 Troponin T < 0.010 ng/mL (0.00-0.029) 06/06/19 21:13 NT-Pro-B Natriuret Pep 38.81 pg/mL (0-900) 06/06/19 17:06 Total Protein 7.2 g/dL (6.3-8.2) 06/06/19 17:06 Albumin 3.8 g/dL (3.9-5) L 06/06/19 17:06 Albumin/Globulin Ratio 1.1 % 06/06/19 17:06 Lipase 18 units/L (13-60) 06/06/19 17:06 Urine Color Yellow (Yellow) 06/06/19 18:37 Urine Turbidity Clear (Clear) 06/06/19 18:37 Urine pH 6.0 (5.0-7.0) 06/06/19 18:37 Ur Specific [place] 1.025 (1.003-1.030) 06/06/19 18:37 Urine Protein <15 mg/dl mg/dL (Negative) 06/06/19 18:37 Urine Glucose (UA) Neg mg/dL (Negative) 06/06/19 18:37 Urine Ketones Neg mg/dL (Negative) 06/06/19 18:37 Urine Blood Neg (Negative) 06/06/19 18:37 Urine Nitrite Neg (Negative) 06/06/19 18:37 Urine Bilirubin Neg (Negative) 06/06/19 18:37 Urine Urobilinogen < 2.0 mg/dL (<2.0) 06/06/19 18:37 Ur Leukocyte Esterase Neg (Negative) 06/06/19 18:37 Urine WBC (Auto) 1.0 /HPF (0.0-6.0) 06/06/19 18:37 Urine RBC (Auto) 1.0 /HPF (0.0-6.0) 06/06/19 18:37 Urine Mucus Few /HPF 06/06/19 18:37 Urine Opiates Screen Presumptive negative 06/06/19 18:37 Urine Methadone Screen Presumptive negative 06/06/19 18:37 Ur Barbiturates Screen Presumptive negative 06/06/19 18:37 Ur Phencyclidine Scrn Presumptive negative 06/06/19 18:37 Ur Amphetamines Screen Presumptive negative 06/06/19 18:37 U Benzodiazepines Scrn Presumptive positive 06/06/19 18:37 Urine Cocaine Screen Presumptive negative 06/06/19 18:37 U Marijuana (THC) Screen Presumptive negative 06/06/19 18:37 Drugs of Abuse Note Disclamer 06/06/19 18:37 - Imaging and Cardiology EKG: report reviewed Chest x-ray: report reviewed Assessment and Plan Advance Directives: Yes (Full code) VTE prophylaxis?: Chemical Plan of care discussed with patient/family: Yes - Patient Problems (1) Chest pain Current Visit: Yes Status: Acute Qualifiers: Chest pain type: unspecified Qualified Code(s): R07.9 - Chest pain, unspecified Plan to address problem: Serial Troponins and Lexiscan in AM (2) HTN (hypertension) Current Visit: Yes Status: Chronic Qualifiers: Hypertension type: essential hypertension Qualified Code(s): I10 - Essential (primary) hypertension Plan to address problem: COnt antihypertensives (3) CAD (coronary artery disease) Current Visit: Yes Status: Chronic Qualifiers: Coronary Disease-Associated Artery/Lesion type: rosebud artery Associated angina: without angina Plan to address problem: Cont Plavix (4) Depression Current Visit: Yes Status: Chronic Qualifiers: Depression Type: unspecified Qualified Code(s): F32.9 - Major depressive disorder, single episode, unspecified Plan to address problem: Cont antidepressants (5) Anemia Current Visit: Yes Status: Chronic Qualifiers: Anemia type: unspecified type Qualified Code(s): D64.9 - Anemia, unspecified Plan to address problem: ANEMIA W/u (6) DVT prophylaxis Current Visit: No Status: Acute Plan to address problem: Lovenox and GI prophylaxis
[2019-06-07 07:02] LABS: Alanine Aminotransferase 36 units/L (7-56); Albumin 3.6 g/dL (3.9-5); BUN/Creatinine Ratio 24; Blood Urea Nitrogen 17 mg/dL (7-17); Calcium 8.3 mg/dL (8.4-10.2); Hemolysis Index 29
[2019-06-07 07:48] LABS: % Iron Saturation 8.65 %
[2019-06-07] MEDS ORDERED: REGADENOSON 0.4 MG/5 ML INJ IV ONE ×2 (08:05→08:06)
--- NOTE | 2019-06-07 09:29 | Discharge Summary ---
Providers - Providers Date of Admission: 06/06/19 17:28 Attending physician: GRANT SMITH MD Primary care physician: [facility] Hospitalization Reason for admission: atypical chest pain Condition: Stable Pertinent studies: Stress test was done and negative for acute ischemia Hospital course: 58-year-old female who was seen at the end of April for atypical chest pain sent here today for evaluation and recommended admission by Dr. Torres from his office. Chest pain since yesterday.Intermittent in nature.No diaphoresis.No SOB.No exacerbating or relieving factors. Patient was admitted to the floor serial troponins were negative, EKG no STEMI, stress test was done this morning and was negative. Patient's symptoms resolved. patient was advised to follow up with her primary care physician discharged home in a stable condition. And advised to continue her current home medication regimen. Disposition: TO HOME OR SELFCARE Time spent for discharge: 34 minutes - Discharge Diagnoses (1) Chest pain Status: Acute Qualifiers: Chest pain type: unspecified Qualified Code(s): R07.9 - Chest pain, unspecified (2) CAD (coronary artery disease) Status: Chronic Qualifiers: Coronary Disease-Associated Artery/Lesion type: craig artery Associated angina: without angina (3) Depression Status: Chronic Qualifiers: Depression Type: unspecified Qualified Code(s): F32.9 - Major depressive disorder, single episode, unspecified (4) HTN (hypertension) Status: Chronic Qualifiers: Hypertension type: essential hypertension Qualified Code(s): I10 - Essential (primary) hypertension Core Measure Documentation - Palliative Care Palliative Care/ Comfort Measures: Not Applicable - Core Measures Any of the following diagnoses?: none Exam - Physical Exam Narrative exam: Not in cardiopulmonary distress. The patient appeared well nourished and normally developed. Vital signs as documented. Head exam is unremarkable. No scleral icterus . Neck is without jugular venous distension, thyromegaly, or carotid bruits. Lungs are clear to auscultation. Cardiac exam reveals regular rate and Rhythm. Abdominal exam reveals normal bowel sounds, nontender, no organomegaly. Extremities are nonedematous and both femoral and pedal pulses are normal. TIMBER RIDER: Alert and oriented 3. No focal weakness. - Constitutional Vitals: Temp Pulse Resp BP Pulse Ox 98.5 F 53 L 20 97/54 100 06/07/19 08:12 06/07/19 08:12 06/07/19 08:12 06/07/19 08:12 06/07/19 08:12 Plan Activity: no restrictions Weight Bearing Status: Full Weight Bearing Diet: low cholesterol, low salt Follow up with: PRIMARY CARE, [Primary Care Provider] - 7 Days ABHILASH TORRES JR, MD [Staff Physician] - 7 Days
[2019-06-07] MEDS ORDERED: hydroCHLOROthiazide 25 MG TAB PO SCH (10:00)
[2019-06-07] MEDS ORDERED: CLOPIDOGREL 75 MG TAB PO SCH (10:00)
[2019-06-07] MEDS: CARISOPRODOL 350 MG TAB PO SCH (10:37)
[2019-06-07] MEDS: diazePAM 5 MG TAB PO SCH (10:38)
[2019-06-07] MEDS ORDERED: SODIUM CHLORIDE 0.9% 1000 ML 1,000 ML IV ONE (13:10)
[2019-06-07] MEDS: METHYLDOPA 250 MG TAB PO SCH (13:18)
[2019-06-07] MEDS: amLODIPine 10 MG TAB PO SCH (13:19)
[2019-06-07] MEDS: LOSARTAN 50 MG TAB PO SCH (13:19)
[2019-06-07] MEDS: LISINOPRIL 10 MG TAB PO SCH (13:20)
[2019-06-07] MEDS: atenoloL 50 MG TAB PO SCH (13:20)
[2019-06-07 15:14] VITALS: BP 115/69
--- NOTE | 2019-06-07 23:41 | Treadmill Report ---
SINGLE ISOTOPE LEXISCAN STRESS NUCLEAR SCAN REFERRING PHYSICIAN: Dr. Dali Garrison DESCRIPTION OF PROCEDURE: The patient received 10 mCi of technetium 99m Myoview intravenously under resting conditions. Resting myocardial perfusion scan was done. Subsequently, the patient underwent Lexiscan stress test as per the protocol. During Lexiscan stress test, the patient received 28 mCi of technetium 99m Myoview intravenously. After 30-60 minutes, post-stress images were done. Computerized reconstruction images was performed for analysis. The post-stress images did not reveal any perfusion abnormality. Cinematic display of the gated study did not reveal any wall motion abnormality. Left ventricular ejection fraction was normal and was calculated to be 72%. The resting images were also normal. CONCLUSION: 1. No perfusion abnormality of the left ventricular myocardium was demonstrated in the resting as well as stress images obtained after the patient underwent Lexiscan stress nuclear scan. 2. No wall motion abnormality. 3. Normal left ventricular ejection fraction of 72%. JOB# [id number] [facility]
== END 2019-06-07 16:47 | disposition home or self-care (01) ==
LOC: ED 15:20 → INTOOBSV 17:28 → 4A 17:28
PROVIDERS: ADMIT Internal Medicine; ATTEND Internal Medicine
DX: R07.89 Other chest pain (principal); I10 Essential (primary) hypertension; I25.10 Atherosclerotic heart disease of native coronary artery without angina pectoris; F32.9 Major depressive disorder, single episode, unspecified; D64.9 Anemia, unspecified; J45.909 Unspecified asthma, uncomplicated; Z90.710 Acquired absence of both cervix and uterus; Z98.84 Bariatric surgery status; Z98.890 Other specified postprocedural states
CPT/HCPCS: 36415; 71045; 78452; 80048; 80053; 80076; 80307; 81001; 82607; 82747; 83036; 83550; 83690; 83735; 83880; 84484; 85025; 85379; 85610; 85730; 93005; 93010; 93017; 96372; 96374; 99285; A9502; G0378; J1170; J1650; J2785; J7030

== ENCOUNTER 2020-10-08 16:36 | Emergency (ER) | payer MEDICARE, OTHER ==
--- NOTE | 2020-10-08 17:14 | Emergency Department Report ---
ED Altered Mental Status HPI - General Chief Complaint: Altered Mental Status Stated Complaint: SYNCOPE/OVERDOSE ON SEDATIVES Time Seen by Provider: 10/08/20 17:09 Source: EMS Mode of arrival: Stretcher Limitations: Altered Mental Status - History of Present Illness Initial Comments: 60-year-old female with history of depression, insomnia, anemia, hypertension, presents to ED with altered mental status. Patient apparently took a Lyft to [facility] to chart picker her prescriptions earlier today. Patient had Ambien, trazodone, and Zanaflex filled. Patient lives with her son. Upon return home, son noted that patient was very drowsy and called the ambulance. Patient reports she took 1 Ambien when she got back into the Lyft. Patient states she did not take any other pills. Bottles are at bedside and each appear to be full. Patient is drowsy but arousable. Patient denies any drug or alcohol use. MD Complaint: decreased responsiveness -: This afternoon Severity: moderate Consistency of Symptoms: constant Associated Symptoms: denies other symptoms. denies: chest pain, fever/chills, headaches, nausea/vomiting, shortness of breath Treatments Prior to Arrival: IV fluid - Related Data Home Medications Medication Instructions Recorded Confirmed Last Taken Amlodipine Bes/Olmesartan Med 10 mg PO DAILY 06/03/14 06/06/19 06/03/14 [Travis 10-20 mg] Enalapril Maleate [Vasotec] 10 mg PO DAILY 06/03/14 06/07/19 06/03/14 atenoloL [Atenolol] 100 mg PO DAILY 06/03/14 06/06/19 06/03/14 Amitriptyline [Elavil] 25 mg PO QHS 06/06/19 06/07/19 06/06/19 Carisoprodol [Soma] 350 mg PO BID 06/06/19 06/07/19 06/06/19 Clopidogrel [Plavix] 75 mg PO QDAY 06/06/19 06/06/19 Unknown Famotidine [Pepcid] 40 mg PO QHS 06/06/19 06/06/19 Unknown Gabapentin 300 mg PO 4XD 06/06/19 06/06/19 Unknown Methyldopa [Aldomet] 250 mg PO QDAY 06/06/19 06/07/19 06/06/19 Zolpidem (Nf) [Ambien (Nf)] 10 mg PO QHS 06/06/19 06/06/19 Unknown diazePAM [Diazepam] 10 mg PO 4XD 06/06/19 06/06/19 Unknown hydroCHLOROthiazide [HCTZ] 25 mg PO QDAY 06/06/19 06/06/19 Unknown traZODone [Desyrel] 50 mg PO QHS 06/06/19 06/06/19 Unknown Allergies Allergy/AdvReac Type Severity Reaction Status Date / Time aspirin Allergy Vomiting Verified 06/03/14 15:22 metoclopramide HCl Allergy Hives Verified 06/03/14 23:01 [From [facility]] ED Review of Systems ROS: Stated complaint: SYNCOPE/OVERDOSE ON SEDATIVES Other details as noted in HPI Comment: All other systems reviewed and negative Constitutional: denies: fever Respiratory: denies: shortness of breath Cardiovascular: denies: chest pain Gastrointestinal: denies: vomiting, diarrhea Neurological: denies: headache ED Past Medical Hx - Past Medical History Previous Medical History?: Yes Hx Hypertension: Yes (controlled with meds) Hx CVA: Yes Hx Psychiatric Treatment: Yes (depression, insomnia) Hx Asthma: Yes (uses inhalers. last used 4 days ago. no recent asthma attacks) Additional medical history: anemia (19-20 blood transfusions per patient). ulcer - Surgical History Additional Surgical History: hysterectomy. gastric bypass. bilateral knee surgery. bilateral shoulder surgery - Social History Smoking Status: Unknown if ever smoked Substance Use Type: None - Medications Home Medications: Home Medications Medication Instructions Recorded Confirmed Last Taken Type Amlodipine Bes/Olmesartan Med 10 mg PO DAILY 06/03/14 06/06/19 06/03/14 History [Travis 10-20 mg] Enalapril Maleate [Vasotec] 10 mg PO DAILY 06/03/14 06/07/19 06/03/14 History atenoloL [Atenolol] 100 mg PO DAILY 06/03/14 06/06/19 06/03/14 History Amitriptyline [Elavil] 25 mg PO QHS 06/06/19 06/07/19 06/06/19 History Carisoprodol [Soma] 350 mg PO BID 06/06/19 06/07/19 06/06/19 History Clopidogrel [Plavix] 75 mg PO QDAY 06/06/19 06/06/19 Unknown History Famotidine [Pepcid] 40 mg PO QHS 06/06/19 06/06/19 Unknown History Gabapentin 300 mg PO 4XD 06/06/19 06/06/19 Unknown History Methyldopa [Aldomet] 250 mg PO QDAY 06/06/19 06/07/19 06/06/19 History Zolpidem (Nf) [Ambien (Nf)] 10 mg PO QHS 06/06/19 06/06/19 Unknown History diazePAM [Diazepam] 10 mg PO 4XD 06/06/19 06/06/19 Unknown History hydroCHLOROthiazide [HCTZ] 25 mg PO QDAY 06/06/19 06/06/19 Unknown History traZODone [Desyrel] 50 mg PO QHS 06/06/19 06/06/19 Unknown History ED Physical Exam - General Limitations: Altered Mental Status General appearance: in no apparent distress, lethargic - Head Head exam: Present: atraumatic, normocephalic - Eye Eye exam: Present: normal appearance - ENT ENT exam: Present: mucous membranes moist - Neck Neck exam: Present: normal inspection - Respiratory Respiratory exam: Present: normal lung sounds bilaterally. Absent: respiratory distress - Cardiovascular Cardiovascular Exam: Present: regular rate, normal rhythm - GI/Abdominal GI/Abdominal exam: Present: soft. Absent: distended, tenderness - Extremities Exam Extremities exam: Present: normal inspection - Neurological Exam Neurological exam: Present: oriented X3, other (Drowsy but arousable). Absent: CN II-XII intact, motor sensory deficit - Psychiatric Psychiatric exam: Present: normal affect, normal mood - Skin Skin exam: Present: warm, dry, intact, normal color ED Course Vital Signs 10/08/20 10/08/20 10/08/20 16:55 17:40 19:02 Temperature 98.1 F Pulse Rate 65 100 H 63 Respiratory 17 12 15 Rate Blood Pressure 98/47 Blood Pressure 98/57 [Right] O2 Sat by Pulse 99 100 100 Oximetry 10/08/20 10/08/20 19:16 20:10 Temperature Pulse Rate 69 58 L Respiratory 11 L 16 Rate Blood Pressure 107/74 Blood Pressure 121/65 [Right] O2 Sat by Pulse 98 99 Oximetry - Reevaluation(s) Reevaluation #1: 03/12/21 18:41 Patient reports history of anemia. States last transfusion was approximately 2 years ago. 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 Patient states they have been unable to find a cause for her anemia. She denies any symptoms secondary to her anemia. Reevaluation #2: 10/08/20 19:31 Patient much more awake and alert. Answering questions appropriately. Will discharge at this time. - Lab Data Result diagrams: 10/08/20 17:39 10/08/20 17:19 Lab Results 10/08/20 10/08/20 Range/Units 17:19 17:39 WBC 6.0 (4.5-11.0) K/mm3 RBC 2.83 L (3.65-5.03) M/mm3 Hgb 7.1 L (10.1-14.3) gm/dl Hct 22.6 L (30.3-42.9) % MCV 80 (79-97) fl MCH 25 L (28-32) pg MCHC 31 (30-34) % RDW 17.9 H (13.2-15.2) % Plt Count 265 (140-440) K/mm3 Lymph % (Auto) 24.7 (13.4-35.0) % [place] % (Auto) 6.1 (0.0-7.3) % Eos % (Auto) 0.5 (0.0-4.3) % Baso % (Auto) 0.4 (0.0-1.8) % Lymph # (Auto) 1.5 (1.2-5.4) K/mm3 [place] # (Auto) 0.4 (0.0-0.8) K/mm3 Eos # (Auto) 0.0 (0.0-0.4) K/mm3 Baso # (Auto) 0.0 (0.0-0.1) K/mm3 Seg Neutrophils % 68.3 (40.0-70.0) % Seg Neutrophils # 4.1 (1.8-7.7) K/mm3 Sodium 140 (137-145) mmol/L Potassium 4.0 (3.6-5.0) mmol/L Chloride 109.9 H (98-107) mmol/L Carbon Dioxide 23 (22-30) mmol/L Anion Gap 11 mmol/L BUN 15 (7-17) mg/dL Creatinine 0.8 (0.6-1.2) mg/dL Estimated GFR > 60 ml/min BUN/Creatinine Ratio 19 % Glucose 111 H (65-100) mg/dL Calcium 7.7 L (8.4-10.2) mg/dL - Radiology Data Radiology results: report reviewed, image reviewed - Medical Decision Making 60-year-old female presents ER for evaluation for decreased responsiveness. Patient had prescriptions filled today and took one of her Ambien on the way home. Son felt as if patient was difficult to arouse, so EMS was called. Here in ED, patient drowsy, but arousable. Patient denies any overdose or suicide attempt. IV fluids were given, BP improved. Labs are unremarkable, except for hemoglobin of 7.1. Patient reports history of anemia, states last transfusion was approximately 2 years ago. She is unsure of her baseline hemoglobin. Patient is not exhibiting any signs of symptomatic anemia. CT head shows no acute findings. Mental status did improve throughout her ED stay. Patient reports her PCP is Dr. Torres. States she has upcoming appointment on 10/19. Patient will be discharged at this time. Outpatient follow-up advised. Return precautions given. - Differential Diagnosis Medication side effect, intracranial abnormality, metabolic abnormality Critical care attestation.: If time is entered above; I have spent that time in minutes in the direct care of this critically ill patient, excluding procedure time. ED Disposition Clinical Impression: Anemia, Medication side effect Disposition: DC-01 TO HOME OR SELFCARE Is pt being admited?: No Condition: Stable Instructions: Complete Blood Count Referrals: PRIMARY CAREMD [Primary Care Provider] - 3-5 Days Time of Disposition: 19:33
[2020-10-08] MEDS ORDERED: SODIUM CHLORIDE 0.9% 1000 ML 1,000 ML IV ONE (17:19)
[2020-10-08 17:47] LABS: Basophils % (Auto) 0.4 % (0.0-1.8); Eosinophils % (Auto) 0.5 % (0.0-4.3); Hematocrit 22.6 % (30.3-42.9); Hemoglobin 7.1 gm/dl (10.1-14.3); Lymphocytes # (Auto) 1.5 K/mm3 (1.2-5.4); Lymphocytes % (Auto) 24.7 % (13.4-35.0); Mean Corpuscular HGB Conc 31 % (30-34); Mean Corpuscular Volume 80 fl (79-97); Monocytes # (Auto) 0.4 K/mm3 (0.0-0.8); Monocytes % (Auto) 6.1 % (0.0-7.3); Platelet Count 265 K/mm3 (140-440); Red Blood Count 2.83 M/mm3 (3.65-5.03); Red Cell Distribution Width 17.9 % (13.2-15.2)
[2020-10-08 18:07] LABS: BUN/Creatinine Ratio 19; Blood Urea Nitrogen 15 mg/dL (7-17); Calcium 7.7 mg/dL (8.4-10.2); Hemolysis Index 0
--- NOTE | 2020-10-08 19:24 | Cat Scan Report ---
CT head/brain wo con INDICATION / CLINICAL INFORMATION: 60 years Female; AMS. TECHNIQUE: Routine CT head without contrast. All CT scans at this location are performed using CT dos e reduction for ALARA by means of automated exposure control. COMPARISON: None. FINDINGS: BRAIN / INTRACRANIAL CONTENTS: There appear to be mild cerebral white matter changes which are nonspe cific though may reflect microvascular angiopathy, possibly within the frontal lobes. The ventricular system is within normal limits in size and configuration. There is a 7 mm focus of calcification along the lateral right temporal occipital region which may re flect incidental hyperostosis or possibly small calcified meningioma. There is no significant adjacen t vasogenic edema or mass effect. There is no clear CT ends of acute intracranial hemorrhage. ORBITS: No significant abnormality of visualized orbits. SINUSES / MASTOIDS: No significant abnormality in the visualized paranasal sinuses or mastoid air mallory ls. CRANIOCERVICAL JUNCTION: No significant abnormality. ADDITIONAL FINDINGS: None. IMPRESSION: 1. There is a 7 mm focus of calcification along the lateral aspect of the right temporal occipital re gion as detailed above. 2. There is otherwise mild microvascular angiopathy without CT evidence of acute intracranial hemorrh age. Signer Name: Keron Garzon MD Signed: 10/08/2020 7:19 PM Workstation Name: [id number]
[2020-10-08 20:11] VITALS: BP 121/65
== END 2020-10-08 20:11 | disposition home or self-care (01) ==
LOC: ED 16:36
DX: D64.9 Anemia, unspecified (principal); R41.82 Altered mental status, unspecified; T42.6X5A Adverse effect of other antiepileptic and sedative-hypnotic drugs, initial encounter; I10 Essential (primary) hypertension; F32.9 Major depressive disorder, single episode, unspecified; J45.909 Unspecified asthma, uncomplicated; Z90.710 Acquired absence of both cervix and uterus; Z98.890 Other specified postprocedural states; Z79.899 Other long term (current) drug therapy; Z88.8 Allergy status to other drugs, medicaments and biological substances; Y92.89 Other specified places as the place of occurrence of the external cause
CPT/HCPCS: 36415; 70450; 80048; 85025; 96360; 99284; J7030